=== PATIENT | male | born 1995 | race Caucasian/White ===

== ENCOUNTER 2016-09-01 13:06 | Emergency (ER) | payer SELFPAY ==
[2016-09-01] MEDS ORDERED: Ketorolac INJ* 60 MG/2 ML VIAL IM ONE (14:09)
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
[2016-09-01] MEDS ORDERED: Acetaminophen TAB* 325 MG PO ONE (16:36)
[2016-09-01 16:46] VITALS: BP 138/81
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
== END 2016-09-01 16:48 | disposition home or self-care (01) ==
LOC: ED 13:06
DX: M26.609 Unspecified temporomandibular joint disorder, unspecified side (principal); S02.5XXA Fracture of tooth (traumatic), initial encounter for closed fracture; S09.90XA Unspecified injury of head, initial encounter; K08.89 Other specified disorders of teeth and supporting structures; F17.210 Nicotine dependence, cigarettes, uncomplicated; X36.1XXA Avalanche, landslide, or mudslide, initial encounter; Y93.9 Activity, unspecified; Y92.9 Unspecified place or not applicable
CPT/HCPCS: 70486; 96372; 99282; A9270-GY; J1885

== ENCOUNTER 2017-08-11 12:28 | Emergency (ER) | payer OTHER ==
[2017-08-11] MEDS ORDERED: oxyCODONE/Acetamin 5/325 MG* TAB PO ONE (14:05)
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
--- NOTE | 2017-08-11 16:01 | RAD ---
HISTORY: Right elbow pain COMPARISONS: None VIEWS: 4, Frontal, lateral, and oblique views of the right elbow FINDINGS: BONE DENSITY: Normal. BONES: There is no displaced fracture. JOINTS: There is no arthropathy. There is no posterior supracondylar fat pad to suggest a joint effusion. ALIGNMENT: There is no dislocation. SOFT TISSUES: There is soft tissue swelling along the medial (ulnar) epicondyle OTHER FINDINGS: None. IMPRESSION: SOFT TISSUE SWELLING. NO ACUTE OSSEOUS INJURY. IF SYMPTOMS PERSIST, RECOMMEND REPEAT IMAGING.
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
[2017-08-11 16:49] VITALS: BP 150/88
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
== END 2017-08-11 16:47 | disposition home or self-care (01) ==
LOC: ED 12:28
DX: S22.41XA Multiple fractures of ribs, right side, initial encounter for closed fracture (principal); S09.90XA Unspecified injury of head, initial encounter; S46.811A Strain of other muscles, fascia and tendons at shoulder and upper arm level, right arm, initial encounter; S13.4XXA Sprain of ligaments of cervical spine, initial encounter; S63.502A Unspecified sprain of left wrist, initial encounter; V49.88XA Car occupant (driver) (passenger) injured in other specified transport accidents, initial encounter; Y92.410 Unspecified street and highway as the place of occurrence of the external cause; F17.200 Nicotine dependence, unspecified, uncomplicated; Z88.0 Allergy status to penicillin
CPT/HCPCS: 70450; 72125; 99282; A9270-GY

== ENCOUNTER 2017-10-18 11:04 | Emergency (ER) | payer SELFPAY ==
[2017-10-18 11:17] VITALS: BP 147/81
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
--- NOTE | 2017-10-18 12:09 | RAD ---
Indication: Right elbow injury. 4 views of the right elbow demonstrates no fracture. No other bone or joint abnormality is noted. IMPRESSION: No fracture of the right elbow is noted.
--- NOTE | 2017-10-18 12:09 | RAD ---
Indication: Right forearm injury. 2 views of the right forearm demonstrates no fracture. No other bone or joint abnormality is identified. IMPRESSION: No fracture of the right forearm is noted.
== END 2017-10-18 13:13 | disposition home or self-care (01) ==
LOC: UCEAST 11:04
DX: M21.331 Wrist drop, right wrist (principal); Z88.0 Allergy status to penicillin; Z82.49 Family history of ischemic heart disease and other diseases of the circulatory system; F17.200 Nicotine dependence, unspecified, uncomplicated
CPT/HCPCS: 99212; G0463